=== PATIENT | male | born 1950 | race Caucasian/White ===

== ENCOUNTER → 2017-01-19 | Outpatient (CLI) | payer OTHER ==
[~2017-01-19] MED LIST: ATORVASTATIN CA20 MG PO; CIPRO500 MG PO; COZAAR50 MG PO; DOCUSATE SODIU100 MG PO; ENDOCET 5-3251 EACH PO; HYDROCHLOROTHIA25 MG PO; LEVO-T75 MCG PO; LEVOTHYROXINE100 MCG PO; LEVOTHYROXINE75 MCG PO; METOPROLOL SUCC50 MG PO; TOPROL XL100 MG PO; XARELTO20 MG PO
== END | disposition home or self-care (01) ==
LOC: NUC 07:10
DX: E05.00 Thyrotoxicosis with diffuse goiter without thyrotoxic crisis or storm (principal); E06.3 Autoimmune thyroiditis; E89.0 Postprocedural hypothyroidism
CPT/HCPCS: 78014; 78999; A9516

== ENCOUNTER → 2017-03-09 | Outpatient (CLI) | payer OTHER | END | disposition home or self-care (01) | LOC: NUC 08:40 | PROC: DWY5GDZ Isotope Administration to Whole Body using Iodine 131 (I-131) (ICD-10-PCS; principal; 2017-03-09) | DX: E05.00 Thyrotoxicosis with diffuse goiter without thyrotoxic crisis or storm (principal) | CPT/HCPCS: 79005; A9517 ==

== ENCOUNTER → 2017-06-01 | Outpatient (CLI) | payer OTHER | END | disposition home or self-care (01) | LOC: NUC 07:33 | DX: M19.011 Primary osteoarthritis, right shoulder (principal); R93.7 Abnormal findings on diagnostic imaging of other parts of musculoskeletal system; Z90.79 Acquired absence of other genital organ(s) | CPT/HCPCS: 78306; A9503 ==